=== PATIENT | female | born 1980 | race Caucasian/White ===

== ENCOUNTER 2024-04-01 18:38 | Emergency (ER) | payer MEDICAID ==
[~2024-04-01] VITALS: Ht 160 cm; Wt 56.7 kg
[2024-04-01 19:10] VITALS: BP_SYST 137; PULSE 77; RESP 16; TEMP 98.7; O2SAT 96
[2024-04-01 19:43] VITALS: BP_SYST 127; PULSE 81; RESP 18; TEMP 98.6; O2SAT 100
== END 2024-04-01 20:35 | disposition home or self-care (01) ==
LOC: SED 18:38
DX: H61.23 Impacted cerumen, bilateral (principal)
CPT/HCPCS: 99282